=== PATIENT | male | born 1985 | race Caucasian/White ===

== ENCOUNTER 2017-05-12 11:34 | Emergency (ER) | payer SELFPAY ==
[~2017-05-12] VITALS: Ht 170.2 cm; Wt 54.2 kg
[~2017-05-12 11:34] MED LIST: LAXATIVE15 MG PO
[2017-05-12 12:42] LABS: HEMATOCRIT 38.7 % (38.0-50.0); MCH 31.6 PG (29.0-34.0); MCHC 33.6 G/DL (30.0-36.0); MCV 94.2 FL (86-99); PLATELET COUNT 196 K/uL (156-360); RBC DIS.WIDTH-CV 12.3 % (11.8-14.6); RBC DIS.WIDTH-SD 42.8 % (39-53); RED BLOOD COUNT 4.11 M/uL (4.00-5.50)
[2017-05-12 12:45] LABS: CARBON DIOXIDE (BICARBONATE) 29.7 MEQ/L (20-31)
[2017-05-12 12:49] LABS: ALBUMIN 3.5 g/dL (3.2-4.8)
[2017-05-12 12:50] LABS: CHLORIDE 102 mEq/L (99-109); POTASSIUM 4.6 mEq/L (3.7-5.4); SODIUM 135 mEq/L (136-147)
[2017-05-12 12:52] LABS: GLUCOSE 187 mg/dL (70-99)
[2017-05-12 12:54] LABS: TOTAL BILIRUBIN 0.2 mg/dL (0.0-1.0)
[2017-05-12 12:55] LABS: ALKALINE PHOSPHATASE 57 IU/L (3-129); SERUM ETHYL ALCOHOL < 10 mg/dL
[2017-05-12 12:56] LABS: CREATININE 0.9 mg/dL (0.6-1.3); GFR ESTIMATE (CALCULATED) > 59 mL/min/ (58.99-99999)
[2017-05-12 12:57] LABS: AST (GOT) 43 IU/L (2-34); UREA NITROGEN (BUN) 16 mg/dL (9-23)
[2017-05-12 12:59] LABS: ALT (GPT) 64 IU/L (3-49)
[2017-05-12 15:38] LABS: AMPHETAMINE NEGATIVE (500 ng/mL); BARBITURATES NEGATIVE (200 ng/mL); BENZODIAZEPINES NEGATIVE (150 ng/mL); BUPRENORPHINE NEGATIVE (10 ng/mL); COCAINE NEGATIVE (150 ng/mL); METHADONE PRESUMPTIVE POSITIVE (200 ng/mL); METHAMPHETAMINE NEGATIVE (500 ng/mL); OPIATES (MORPHINE) NEGATIVE (100 ng/mL); OXYCODONE NEGATIVE (100 ng/mL); PHENCYCLIDINE NEGATIVE (25 ng/mL); PROPOXYPHENE NEGATIVE (300 ng/mL); THC CANNABINOIDS PRESUMPTIVE POSITIVE (50 ng/mL); TRICYCLIC ANTIDEPRESSANTS NEGATIVE (300 ng/mL)
[2017-05-12] MEDS ORDERED: NARCAN4 MG NS (15:55)
[2017-05-12 16:41] VITALS: BP 122/78
== END 2017-05-12 16:41 | disposition home or self-care (01) ==
LOC: EME 11:34
PROVIDERS: Emergency Medicine
DX: T40.1X1A Poisoning by heroin, accidental (unintentional), initial encounter (principal); R73.9 Hyperglycemia, unspecified; F41.9 Anxiety disorder, unspecified; F17.200 Nicotine dependence, unspecified, uncomplicated
CPT/HCPCS: 80053; 82803; 83930; 84999; 85027; 93005; 99281; 99285; G0480; J2310; J7120